=== PATIENT | male | born 1980 ===

== ENCOUNTER 2024-01-09 14:49 | Emergency (ER) | payer MEDICAID, SELFPAY ==
--- NOTE | 2024-01-09 15:13 | ED.GENADULT ---
HPI - General Adult General Chief complaint: Animal Bite Stated complaint: quest bat bite Time Seen by Provider: 01/09/24 17:39 Source: patient, RN notes reviewed and old records reviewed Mode of arrival: ambulatory Limitations: no limitations History of Present Illness ED Provider: Cade HPI narrative: 43-year-old male presents for evaluation potential rabies exposure. Patient reports he woke up early this morning with a bat circling his bed He attempted to capture the bat but was unsuccessful. He believes the bat is still in his house. He has 2 red huang on his right forearm that he thinks may be a bite jackelin but he is not sure He has no complaints or concerns at this time Related Data Allergies Allergy/AdvReac Type Severity Reaction Status Date / Time Seasonal Allergies Allergy Runny Nose Verified 01/09/24 15:16 Review of Systems Constitutional: Constitutional: Denies body ache(s), Denies chills and Denies fever(s) ENT: Denies sore throat Cardiovascular: Cardiovascular: Denies chest pain and Denies dyspnea Respiratory: Respiratory: Denies cough and Denies dyspnea Gastrointestinal: Gastrointestinal: Denies abdominal pain Musculoskeletal: Musculoskeletal: Denies back pain Integumentary/Breasts: Skin/Breast: Reports erythema Physical Exam ED Vital Signs: Vital Signs - 24 hr 01/09/24 15:14 01/09/24 17:58 Temperature 97.9 F Pulse Rate 88 88 Respiratory Rate 16 16 Blood Pressure 138/84 138/84 Pulse Oximetry 98 98 Oxygen Delivery Method Room Air Room Air BMI result Body Mass Index 22.8 Const General: healthy appearing, comfortable, no acute distress, alert and awake Nutritional Appearance: well nourished Orientation/consciousness: patient oriented x3 HENMT Head: Yes normocephalic and Yes atraumatic Eyes Eyelids: Yes eyelids normal Conjunctivae: conjunctivae normal Sclerae: sclerae normal Corneas: corneas normal Pupils: Equal, round and reactive pupils present EOM: EOMs intact bilaterally Neck Neck: Yes full ROM Resp Effort & Inspection: normal respiratory effort, able to speak in complete sentences and not labored Skin Other: Patient has 2 pinpoint areas of erythema to the right forearm. There is no obvious puncture wound General skin exam: elasticity normal Neuro General: patient oriented x3 Cranial nerves: Yes Equal, round and reactive pupils present and Yes Bilaterally intact EOM present Cognition (Neuro): normal cognition Course Course Course Narrative: RAFAELE- 43 year old male presents for evaluation of a bat and potential rabies exposure. Patient reports a bat was flying around his room early this morning and he was unable to catch it. He has a jackelin on his arm that he is unsure if he was bit in or not. Plan to initiate rabies series Medications Administered Discontinued Medications Generic Name Dose Route Start Last Admin Trade Name Lenchoq PRN Reason Stop Dose Admin Rabies Immune Globulin 1,566 unit 01/09/24 15:20 01/09/24 17:38 Rabies Immune Globulin/Pf 900 Unit/3 Ml Vial 20 unit/kg (1566 unit) 01/09/24 15:21 1,566 unit IM Administration ONCE ONE Rabies Vaccine Human Diploid Cell 1 ml 01/09/24 15:20 01/09/24 17:39 Rabies Vaccine, Human Diploid (Imovax) 1 Ml Vial IM 01/09/24 15:21 1 ml .ONCE ONE Administration Procedures Procedure Narrative Procedure Narrative: I cleaned the area to the right forearm. I injected 2 cc of rabies immune globulin intradermally. There were no complications, sterile dressing was applied Medical Decision Making Medical Decision Making MDM Narrative: Patient has a potential bite jackelin. Clinically it does not appear consistent with puncture wounds however the patient did have a bat in his room with high risk for rabies transmission. We will treat with a rabies vaccine series. Discussed risks and benefits with the patient at length Differential Diagnosis Differential Diagnoses: The differential diagnosis associated with the presentation includes Rabies exposure Animal bite Bat and counter Puncture wound Discharge Plan Discharge Clinical Impression: Exposure to rabies Patient Disposition: Home, Self-Care Instructions: Rabies (ED) Additional Instructions: Rabies follow up with the [facility] Infusion Center: Upon discharge from the ED today, you will be contacted by the Infusion Center to schedule your follow up Rabies vaccines. You will need a total of 3 more injections. If for some reason you do not receive a call, please call the Infusion Center directly at [phone]. Follow up with your primary care provider after completion of the vaccine to have a titer drawn to ensure the vaccines effectiveness. You need to present to the infusion center on day 3, 7, and 14 from today If you capture the bat and it test negative for rabies, you may stop the vaccine series Follow-up with your primary doctor, return for new or worsening symptoms Interventions: ED Discharge Assessment Last Done: 01/09/24 17:58
[2024-01-09 15:14] VITALS: BP 138/84; PULSE 88; RESP 16; O2SAT 98; BMI 22.8
[2024-01-09] MEDS: Rabies Immune Globulin/PF 900 UNIT/3 ML VIAL 1566 UNIT IM (17:38)
[2024-01-09] MEDS: Rabies Vaccine, Human Diploid (Imovax) 1 ML VIAL IM (17:39)
[2024-01-09 17:58] VITALS: BP 138/84; PULSE 88; RESP 16; TEMP 36.6; O2SAT 98
== END 2024-01-09 19:02 | disposition home or self-care (01) ==
LOC: HO.ED 18:07
PROVIDERS: Emergency Provider Internal Medicine; PCP Internal Medicine
DX: S51.851A Open bite of right forearm, initial encounter (principal); W55.81XA Bitten by other mammals, initial encounter; Y93.89 Activity, other specified; Y92.009 Unspecified place in unspecified non-institutional (private) residence as the place of occurrence of the external cause; Y99.9 Unspecified external cause status
CPT/HCPCS: 90375; 90471; 90675; 96372; 99282; 99284

== ENCOUNTER 2024-11-15 12:08 | Outpatient (REF) | payer SELFPAY ==
[2024-11-15 14:42] LABS: MANUAL DIFF FLAG NO
--- OUTSIDE RECORDS SUMMARY | 2024-11-15 14:44 | XMS_ITS | Encounter Summary ---
Author Organization [employer] Address [address] [place] [id number] Care Team Providers Care Sheep Sorter Name Role Phone Liseth Spence MD Primary Care Provider Encounter Details Date Type Department Care Team ([facility] Contact Info) Description 10/02/2024 Orders Only [facility] MEDICINE [address] [place], [place] [phone] Liseth Spence MD [address] [place] [address] Primary hypertension (Primary Dx); Essential (primary) hypertension Social History Tobacco Use Types Packs/Day Years Used Date Smoking Tobacco: Every Day Cigarettes Smokeless Tobacco: Never Alcohol Use Standard Drinks/Week Comments Not Currently 0 (1 standard drink = 0.6 oz pur e alcohol) Sex and Gender Information Value Date Recorded Sex Assigned at Male 06/07/2022 10:35 AM EDT Legal Sex Male 10:35 AM EDT Gender Identity Male 06/07/2022 10:35 AM EDT Sexual Orientation Straight 06/07/2022 10 :35 AM EDT documented as of this encounter Plan of Treatment Upcoming Encounters Date Type Department Care Team ([facility] Contact Info) Description 12/03/2024 9:30 AM EDT Office Visit [facility] CHC MED & PEDS [address] [place], [place] [phone] Liseth Spence MD [address] [place], [place] [phone] Scheduled Orders Name Type Priority Associated Diagnoses Orde r Schedule Comprehensive Metabolic Panel Lab Routine Primary hypertension Expected: 10/02/2024 (Approximate), Expires: 10/02/2025 CBC auto differential Lab Routine Primary hypertension Expected: 10/02/2024 (Approximate), Expires: 10/02/2025 Lipid Panel, Standard Lab Routine Primary hypertension Expected: 10/02/2024 (Approximate), Expires: 10/02/2025 TSH W/Reflex to FT4 Lab Routine Primary hypertension Expected: 10/02/2024 (Approximate), Expires: 10/02/2025 documented as of this encounter Visit Diagnoses Diagnosis Primary hypertension- Primary Unspecified essential hypertension Essential (primary) hypertension Unspecified essential hypertension documented in this encounter Care Teams Sheep Sorter Relationship Specialty Start Date End Date Liseth Spence MD [address] [place] [id number] PCP - General Internal Medicine 05/03/19 documented as of this encounter
--- OUTSIDE RECORDS SUMMARY | 2024-11-15 14:44 | XMS_ITS | Encounter Summary ---
Author Organization [employer] Address [address] [place] [address] Care Team Providers Care Bead Machine Operator Name Role Phone Liseth Spence MD Primary Care Provider Encounter Details Date Type Department Care Team (Latest Contact Info) Description 08/09/2019 Abstract [facility] CONVERSIONS Dental, Provider, DDS Social History Tobacco Use Types Packs/Day Years Used Date Smoking Tobacco: Never Assessed Sex and Gender Information Value Date Recorded Sex Assigned at Male 06/07/2022 10:35 AM EDT Legal Sex Male 10:35 AM EDT Gender Identity Male 06/07/2022 10:35 AM EDT Sexual Orientation Straight 06/07/2022 10 :35 AM EDT documented as of this encounter Plan of Treatment Upcoming Encounters Date Type Department Care Team (Late st Contact Info) Description 12/03/2024 9:30 AM EDT Office Visit [facility] CHC MED & PEDS [address] [place] [address] Liseth Spence MD [address] [place] [address] documented as of this encounter Visit Diagnoses Not on filedocumented in this encounter Care Teams Bead Machine Operator Relationship Specialty Start Date End Date Liseth Spence MD [address] [place] [address] PCP - General Internal Medicine 05/03/19 documented as of this encounter
--- OUTSIDE RECORDS SUMMARY | 2024-11-15 14:44 | XMS_ITS | Encounter Summary ---
Author Organization [employer] Address [address] [place] [address] [address] [place] [address] Care Team Providers Care Warehouse Manager Name Role Phone Liseth Spence MD Primary Care Provider Reason for Visit * Reason Onset Date Comments Call Back Request 01/09/2024 Encounter Details Date Type Department Care Team ([facility] st Contact Info) Description 01/09/2024 Telephone [facility] CHC MED & PEDS [address] [place] [address] Liseth Spence MD [address] [place] [address] Call Back Request Social History Tobacco Use Types Packs/Day Years Used Date Smoking Tobacco: Every Day Cigarettes Sex and Gender Information Value Date Recorded Sex Assigned at Male 06/07/2022 10:35 AM EDT Legal Sex Male 10:35 AM EDT Gender Identity Male 06/07/2022 10:35 AM EDT Sexual Orientation Straight 06/07/2022 10 :35 AM EDT documented as of this encounter Miscellaneous Notes * Telephone Encounter - Janie Esparza RN - 01/09/2024 7:40 PM EDT See TC from 01/09/24. [employer] checked and pt presented to [facility] ED for two bite huang to forearm. Ptreceived Rabies tx(Rabies immunoglobulin.) RN will forward to PCP as FYI. * Telephone Encounter - Maegan Phillips - 01/09/2024 11:09 AM EDT Tc from pt states woke up in the middle of the night to a bat in his room. Pt does have concerns and would like to get testing done but is currently asymptomatic. Please contact pt at [phone] documented in this encounter Plan of Treatment Upcoming Encounters Date Type Department Care Team (Late st Contact Info) Description 12/03/2024 9:30 AM EDT Office Visit [facility] CHC MED & PEDS [address] [place] [address] Liseth Spence MD [address] [place] [address] documented as of this encounter Visit Diagnoses Not on filedocumented in this encounter Care Teams Warehouse Manager Relationship Specialty Start Date End Date Liseth Spence MD [address] [place] [address] PCP - General Internal Medicine 05/03/19 documented as of this encounter
--- OUTSIDE RECORDS SUMMARY | 2024-11-15 14:44 | XMS_ITS | Encounter Summary ---
Author Organization [employer] Address [address] [place] [address] Care Team Providers Care Aircraft Charter Dispatcher Name Role Phone Liseth Spence MD Primary Care Provider Encounter Details Date Type Department Care Team (Latest Contact Info) Description 04/10/2021 Abstract [facility] CONVERSIONS Dental, Provider, DDS Social [...] Upcoming Encounters Date Type Department Care Team ( st Contact Info) Description 12/03/2024 9:30 AM EDT Office Visit [facility] CHC MED & PEDS [address] [place] [address] Liseth Spence MD [address] [place] [address] documented as of this encounter Visit Diagnoses Not on filedocumented in this encounter Care Teams Aircraft Charter Dispatcher Relationship Specialty Start Date End Date Liseth Spence MD [address] [place] [address] PCP - General Internal Medicine 05/03/19 documented as of this encounter
--- OUTSIDE RECORDS SUMMARY | 2024-11-15 14:44 | XMS_ITS | Encounter Summary ---
Author Organization [employer] Address [address] [place] [address] Care Team Providers Care Worm Picker Name Role Phone Liseth Spence MD Primary Care Provider [phone] Encounter Details Date Type Department Care Team ([facility] Contact Info) Description 07/12/2023 Telephone [facility] MEDICINE [address] [place], [place] [phone] Liseth Spence MD [address] [place] [address] Social History Tobacco Use Types Packs/Day Years [...] Upcoming Encounters Date Type Department Care Team ([facility] Contact Info) Description 12/03/2024 9:30 AM EDT Office Visit [facility] CHC MED & PEDS [address] [place], [place] [phone] Liseth Spence MD [address] [place] [address] documented as of this encounter Visit Diagnoses Not on filedocumented in this encounter Care Teams Worm Picker Relationship Specialty Start Date End Date Liseth Spence MD [address] [place] [address] PCP - General Internal Medicine 05/03/19 documented as of this encounter
--- OUTSIDE RECORDS SUMMARY | 2024-11-15 14:44 | XMS_ITS | Clinical Summary ---
Author Organization [employer] Address [address] [place] [address] [address] [place] [address] Care Team Providers Care Wind Turbine Design Engineer Name Role Phone Liseth Spence MD Primary Care Provider [phone] Allergies No known active allergies Medications mupirocin (Bactroban) 2 % ointment Apply topically 3 times daily. 22 g 3 Active propranolol (Inderal) 10 MG tabletIndications :Social phobia, unspecified TAKE 1 TABLET BY ORAL ROUTE 30 MINUTES PRIOR TO THE ANXIETY PROVOKING SITUATION 90 tablet 1 3 Active ketoconazole (Nizoral) 2 % shampooIndication s:Seborrheic dermatitis Apply topically 2 (two) times a week. 120 mL 2 3 Active clonazePAM (KlonoPIN) 0.5 MG tabletIndications :Anxiety Take 1 tablet (0.5 mg) by mouth Once daily. 30 tablet 3 Active Aspirin 81 MG capsule Take 81 mg by mouth. 4 Active busPIRone (Buspar) 15 MG tabletIndications :Anxiety disorder, unspecified TAKE 1 TABLET BY MOUTH TWICE A DAY 60 tablet 5 5 Active amLODIPine (Norvasc) 10 MG tabletIndications :Essential (primary) hypertension Take 1 tablet (10 mg) by mouth Once per day. 90 tablet 1 5 Active Active Problems Problem Noted Date Diagnosed Date Anxiety 07/13/2023 07/13/2023 Chronic back pain 07/13/2023 07/13/2023 Assessment & Plan (09/15/2023 2:20 PM EST): Chronic low back pain, no sciatica, no lower extremity weakness, tingling, refers used to see pain management but lost follow up about 2-3 years ago, will place consult, Tick bite of right upper arm 12/21/2022 Assessment & Plan (12/21/2022 4:07 PM EDT): Patient with a recent tick bite, species unknow. Will start on doxycycline and bactroban and send for lyme disease testing. Encounters Date Type Department Care Team Description 10/02/2024 Orders Only [facility] MEDICINE [address] [place], [place] [phone] Liseth Spence MD Primary hypertension (Primary Dx); Essential (primary) hypertension 10/01/2024 Refill [facility] MED & PEDS [address] [place] [address] Liseth Spence MD Essential (primary) hypertension 09/04/2024 Refill [facility] MED & PEDS [address] [place] [address] Liseth Spence MD Anxiety disorder, unspecified from Last 3 Months Social History Tobacco Use Types Packs/Day Years Used Date Smoking Tobacco: Every Day Cigarettes Smokeless Tobacco: Never Tobacco Cessation:Ready to Q uit: Not Asked; Counseling Given: Not Answered Alcohol Use Standard Drinks/Week Comments Not Currently 0 (1 standard drink = 0.6 oz pur e alcohol) Sex and Gender Information Value Date Recorded Sex Assigned at Male 06/07/2022 10:35 AM EDT Legal Sex Male 10:35 AM EDT Gender Identity Male 06/07/2022 10:35 AM EDT Sexual Orientation Straight 06/07/2022 10 :35 AM EDT Last Filed Vital Signs Vital Sign Reading Time Taken Comments Blood Pressure 142/80 04/04/2024 2:09 PM EDT Pulse 90 07/13/2023 9:20 AM EST Temperature 36.2 ??C (97.1 ??F) 07/13/2023 9:20 AM ES T Respiratory Rate 18 07/13/2023 9:20 AM EST Oxygen Saturation 99% 07/13/2023 9:20 AM EST Inhaled Oxygen Concentration - - Weight 75.8 kg (167 lb) 07/13/2023 9:20 AM EST Height 188 cm (6' 2 ) 07/13/2023 9:20 AM EST Body Mass Index 21.44 07/13/2023 9:20 AM EST Plan of Treatment Upcoming Encounters Date Type Department Care Team (Late st Contact Info) Description 12/03/2024 9:30 AM EDT Office Visit [facility] MED & PEDS [address] [place] [address] Liseth Spence MD [address] [place] [address] Health Maintenance Due Date Last Done Comments Depression Screening 1982 HIV Screening 1982 Lipid Panel 1982 SDOH Screening 1982 Alcohol/Substance Use Screening 1994 Family Planning (PISQ) 1997 Hepatitis C Screening 01/26/2000 DTaP/Tdap/Td Vaccines (1 - Tdap) 2001 Hepatitis B Vaccines (1 of 3 - 19+ 3-dose series) 2001 Pneumococcal Vaccine: Pediatrics (0 to 5 Years) and At-Risk Patients (6 to 49) Years) (1 of 2 - PCV) 2001 Dental Oral Exam 09/28/2021 03/27/2021, 08/09/2019 Dental Prophylaxis 10/09/2021 04/10/2021, 08/16/2019 Dental X-Ray: Full Mouth 08/10/2022 08/09/2019 COVID-19 Vaccine ( - 2023- season) 2024 Influenza Vaccine (#1) 2024 Tobacco Screening 04/04/2025 04/04/2024 Dental X-Ray: Bitewings 04/05/2025 04/04/20 24, 03/27/2021, 03/25/2021, Additional history exists Zoster Vaccines (1 of 2) 01/26/2032 RSV Patients and Patients Aged 60 years or older (1 - 1-dose 75+ series) 2057 HIB Vaccines Aged Out No longer eligi ble based on patient's age to complete this topic HPV Vaccines Aged Out No longer eligi ble based on patient's age to complete this topic Hepatitis A Vaccines Aged Out No long er eligible based on patient's age to complete this topic IPV Vaccines Aged Out No longer eligi ble based on patient's age to complete this topic Meningococcal Vaccine Aged Out No valentina ryan eligible based on patient's age to complete this topic RSV under 20 months Aged Out No longe r eligible based on patient's age to complete this topic Rotavirus Vaccines Aged Out No longer eligible based on patient's age to complete this topic Procedures Procedure Name Priority Date/Time Associated Diagnosis Comments BITEWING - SINGLE RADIOGRAPHIC IMAGE Routine 04/04/2024 2:00 PM EDT PROPHYLAXIS - ADULT Routine 04/10/2021 1 2:00 AM EDT PERIODIC ORAL EVALUATION - ESTABLISHED PATIENT Routine 03/27/2021 12:00 AM EDT INTRAORAL - COMPLETE SERIES OF RADIOGRAPHIC IMAGES Routine 08/09/2019 12:00 AM EST from Last 3 Months or Most Recently Relevant to Health Maintenance Insurance [place] [id number] [facility] STAND ADULT Care Teams Wind Turbine Design Engineer Relationship Specialty Start Date End Date Liseth Spence MD [address] [place] [address] PCP - General Internal Medicine 05/03/19
--- OUTSIDE RECORDS SUMMARY | 2024-11-15 14:44 | XMS_ITS | Encounter Summary ---
Author Organization [employer] Address [address] [place] [address] Care Team Providers Care Packer Fuser Name Role Phone Liseth Spence MD Primary Care Provider [phone] Reason for Visit * Reason Comments Med Refill Encounter Details Date Type Department Care Team (Late Contact Info) Description 10/01/2024 Refill [facility] MED & PEDS [address] [place] [address] Liseth Spence MD [address] [place] [address] Essential (primary) hypertension Social History Tobacco Use [...] Encounters Date Type Department Care Team (Late Contact Info) Description 12/03/2024 9:30 AM EDT Office Visit [facility] MED & PEDS [address] [place] [address] Liseth Spence MD [address] [place] [address] documented as of this encounter Visit Diagnoses Diagnosis Essential (primary) hypertension Unspecified essential hypertension documented in this encounter Care Teams Packer Fuser Relationship Specialty Start Date End Date Liseth Spence MD [address] [place] [address] PCP - General Internal Medicine 05/03/19 documented as of this encounter
[2024-11-15 14:52] LABS: Basophils Absolute Auto 0.1 X10*3/uL (0.0-0.2); Basophils Percent Auto 1.3 % (0-2); Eosinophils Absolute Auto 0.5 X10*3/uL (0.0-0.4); Eosinophils Percent Auto 6.9 % (0-4); Hematocrit 41.7 % (42.0-52.0); Hemoglobin 13.9 g/dl (14.0-18.0); Imm Gran Abs Auto 0.02 X10*3/uL (0.00-0.03); Imm Gran Pct Auto 0.3 % (0.0-0.4); Lymphocytes Absolute Auto 2.7 X10*3/uL (1.2-4.9); Lymphocytes Percent Auto 38.4 % (20-40); Mean Corpuscular HGB Conc 33.3 g/dl (31.0-36.0); Mean Corpuscular Hemoglobin 28.5 pg (27.0-33.0); Mean Corpuscular Volume 85.5 fL (80.0-98.0); Mean Platelet Volume 11.1 fL (9.4-12.4); Monocytes Absolute Auto 0.7 X10*3/uL (0.1-1.2); Monocytes Percent Auto 9.3 % (2-11); Neutrophils Absolute Auto 3.1 x10*3/uL (2.0-8.3); Neutrophils Percent Auto 43.8 % (45-73); Platelet Count 234 X10*3/uL (160-400); Red Blood Count 4.88 X10*6/uL (4.60-5.80); Red Cell Distribution Width 12.4 % (11.0-16.0); White Blood Count 7.1 X10*3/uL (4.8-10.8)
[2024-11-15 15:12] LABS: Alanine Aminotransferase 36 U/L (0-40); Albumin Level 4.2 g/dL (3.5-5.0); Anion Gap 12 (12-20); Aspartate Amino Transferase 33 U/L (5-37); Bilirubin Total 0.6 mg/dL (0.0-1.0); Blood Urea Nitrogen 16 mg/dL (9-16); Calcium 9.1 mg/dL (8.4-10.2); Carbon Dioxide 25 mmol/L (22-29); Chloride 107 mmol/L (96-108); Cholesterol 237 mg/dL (<200); Estimated Glomerular Filt Rate > 60; Glucose Random 78 mg/dL (60-115); HDL Cholesterol 47 mg/dL (>40); LDL Cholesterol Calculated 164 mg/dL (<100); Potassium 3.8 mmol/L (3.3-5.1); Sodium 140 mmol/L (135-145); Triglycerides 130 mg/dL (<150)
[2024-11-15 15:21] LABS: Alkaline Phosphatase 85 U/L (39-117)
[2024-11-15 15:28] LABS: TSH reflex Free T4 0.87 uIU/mL (0.32-4.0)
== END 2024-11-15 12:09 | disposition home or self-care (01) ==
LOC: HO.CHCLDS 12:08
PROVIDERS: Visit Provider Internal Medicine
DX: I10 Essential (primary) hypertension (principal)
CPT/HCPCS: 36415; 80053; 80061; 84443; 85025

== ENCOUNTER 2025-05-04 08:04 | Emergency (ER) | payer SELFPAY ==
[2025-05-04 08:14] VITALS: BP 146/70; PULSE 85; RESP 16; TEMP 36.7; O2SAT 99; BMI 23.1
--- OUTSIDE RECORDS SUMMARY | 2025-05-04 08:38 | XMS_ITS | Clinical Summary ---
Author Organization [employer] Address [address] [facility] 7t [place] [address] Care Team Providers Care Gizzard Peeler Name Role Phone Liseth Spence MD Primary Care Provider Allergies No known active allergies Medications mupirocin [...] Take 81 mg by mouth. 4 Active nicotine (Nicoderm CQ) 21 MG/24HR patchIndications: Hypercholesterole silvia Place 1 patch on the skin 1 (one) time each day at the same time. 30 patch 5 Active busPIRone (Buspar) 15 MG tabletIndications :Anxiety disorder, unspecified Take 1 tablet (15 mg) by mouth 2 times daily. 60 tablet 5 5 Active amLODIPine (Norvasc) 10 MG tabletIndications :Essential (primary) hypertension TAKE 1 TABLET (10 MG) BY MOUTH ONCE PER DAY. 90 tablet 1 5 Active amoxicillin (Amoxil) 500 MG capsule Take 1 capsule (500 mg) by mouth every 8 (eight) hours for 7 days. 21 capsule 5 04/16/20 25 chlorhexidine (Peridex) 0.12 % solution Use 15 mL in the mouth or throat if needed in the morning, at noon, and at bedtime (PROPHYLAXIS) for up to 5 days. 110 mL 5 04/09/20 25 acetaminophen (Tylenol) 500 MG tablet Take 1 tablet (500 mg) by mouth every 8 (eight) hours if needed for mild pain or moderate pain for up to 5 days. 15 tablet 5 04/16/20 25 amoxicillin-clavu lanate (Augmentin) 875-125 MG tablet Take 1 tablet by mouth 2 times daily for 7 days. 14 tablet 5 04/23/20 25 ibuprofen 600 MG tablet Take 1 tablet (600 mg) by mouth 3 times daily for 7 days. 21 tablet 5 04/23/20 25 acetaminophen (Tylenol) 500 MG tablet Take 1 tablet (500 mg) by mouth every 8 (eight) hours if needed for mild pain for up to 7 days. 21 tablet 5 04/23/20 25 Active Problems Problem Noted Date Diagnosed Date Primary hypertension 12/03/2024 Hypercholesterolemia 12/03/2024 Anxiety 07/13/2023 07/13/2023 Chronic back pain 07/13/2023 [...] Encounters Date Type Department Care Team Description 05/03/2025 Telephone [facility] MED & PEDS [address] [place] [address] Liseth Spence MD Nurse Triage 04/16/2025 10:00 AM EDT Office Visit [facility] ADULT DENTAL [address] [place] [address] Billy Kirby DDS 04/04/2025 11:30 AM EDT Office Visit [facility] ADULT DENTAL [address] [place] [address] Lee Estrada DMD 03/31/2025 Refill [facility] MEDICINE [address] [place] [address] Liseth Spence MD Essential (primary) hypertension 02/21/2025 Telephone [facility] CHC MED & PEDS [address] [place], [place] [phone] Liseth Spence MD ER Follow-up from Last 3 Months Social History Tobacco Use Types Packs/Day Years Used Date Smoking Tobacco: Every Day Cigarettes 0.5 27.7 Started: 08/08/1997 Passive Smoke Exposure: Current Smokeless Tobacco: Never Tobacco Cessation:Ready to Q uit: Not Asked; Counseling Given: Not Answered Alcohol Use Standard Drinks/Week Comments Not Currently 0 (1 standard drink = 0.6 oz pur e alcohol) Depression Answer Date Recorded Patient Health Questionnaire-9 Score 3 12/03/2024 Patient Health Questionnaire-9 Score 3 12/03/2024 Last PHQ-9: Questionnaire Data Not on file 0 12/03/2024 Housing Stability Answer Date Recorded What is your housing situation today? I have kaykay mccurdy 11/21/[address] you li ve. Do you have problems with any of the following? None of the above 11/21/2024 Food Insecurity Answer Date Recorded Within the past 12 months, y ou worried that your food would run out before you got money to buy more: Never True 11/21/2024 Within the past 12 months,th e food you bought just didn't last and you didn't have enough money to get more: Never True Transportation Answer Date Recorded In the past 12 months, has l ack of transportation kept you from medical appts, meetings, work or from getting things needed for daily living? No 11/21/2024 Utilities Answer Date Recorded In the past 12 months, has t he electric, gas, oil or water company threatened to shut off services in your home? No 11/21/2024 Depression Answer Date Recorded Patient Health Questionnaire-2 Score 2 12/03/2024 Internet Access Answer Date Recorded Internet Access Q1 Yes 11/21/2024 Internet Access Q2 Not on file 11/21/2024 Sex and Gender Information Value Date Recorded Sex Assigned at Male 06/07/2022 10:35 AM EDT Legal Sex Male 10:35 AM EDT Gender Identity Male 06/07/2022 10:35 AM EDT Sexual Orientation Straight 06/07/2022 10 :35 AM EDT Last Filed Vital Signs Vital Sign Reading Time Taken Comments Blood Pressure 120/90 04/16/2025 10:16 AM EDT Pulse 88 12/03/2024 9:37 AM EDT Temperature 36.9 C (98.4 F) 12/03/2024 9:37 AM EDT Respiratory Rate 20 12/03/2024 9:37 AM EDT Oxygen Saturation 98% 12/03/2024 9:37 AM EDT Inhaled Oxygen Concentration - - Weight 77.6 kg (171 lb) 12/03/2024 9:37 AM EDT Height 185.4 cm (6' 1 ) 12/03/2024 9:37 AM EDT Body Mass Index 22.56 12/03/2024 9:37 AM EDT Plan of Treatment Upcoming Encounters Date Type Department Care Team (Late st Contact Info) Description 05/28/2025 10:30 AM EDT Office Visit [facility] ADULT DENTAL [address] [place] [address] Billy Kirby DDS [address] [place] [address] 10/17/2025 10:15 AM EDT Office Visit [facility] ADULT DENTAL [address] [place] [address] Radha Mccloud Health Maintenance Due Date Last Done Comments HIV Screening 1982 Family Planning (PISQ) 1997 HPV Vaccines (1 - Male 3-dose series) 1997 Hepatitis C Screening 01/26/2000 Hepatitis B Vaccines (1 of 3 - 19+ 3-dose series) 2001 Pneumococcal Vaccine: Pediatrics (0 to 5 Years) and At-Risk Patients (6 to 49) Years (1 of 2 - PCV) 2001 Dental Oral Exam 09/28/2021 03/27/2021, 08/09/2019 Dental Prophylaxis 10/09/2021 04/10/2021, 08/16/2019 Dental X-Ray: Bitewings 04/05/2025 04/04/20 24, 03/27/2021, 03/25/2021, Additional history exists COVID-19 Vaccine ( - season) 2025 Influenza Vaccine (#1) 2025 SDOH Screening 11/21/2025 11/21/2024 Alcohol/Substance Use Screening 12/03/2025 12/03/2024 Depression Screening 12/03/2025 12/03/2024, 12/04/19 Disability Screening 12/03/2025 12/03/2024 Tobacco Screening 04/04/2026 04/04/2025 Dental X-Ray: Full Mouth 04/05/2028 04/04/2025, 09/2019 Lipid Panel 11/15/2029 11/15/2024 Zoster Vaccines (1 of 2) 01/26/2032 DTaP/Tdap/Td Vaccines (2 - Td or Tdap) 02/16/2035 02/16/2025 RSV Patients and Patients Aged 60 years [...] patient's age to complete this topic Meningococcal B Vaccine Aged Out No l onger eligible based on patient's age to complete [...] Procedure Name Priority Date/Time Associated Diagnosis Comments 1 EXTRACTION, ERUPTED TOOTH OR EXPOSED ROOT (ELEVATION/FORCEPS REMOVAL) Routine 04/16/2025 10:00 AM EDT PANORAMIC RADIOGRAPHIC IMAGE Routine 04/04/2025 11:30 AM EDT PALLIATIVE (EMERGENCY) TREATMENT OF DENTAL PAIN - MINOR PROCEDURE Routine 04/04/2025 11:30 AM EDT LIPID PANEL, STANDARD Routine 11/15/2024 12:09 PM EDT Primary hypertension BITEWING - SINGLE RADIOGRAPHIC IMAGE Routine 04/04/2024 2:00 PM EDT PROPHYLAXIS - ADULT Routine 04/10/2021 1 2:00 AM EDT PERIODIC ORAL EVALUATION - ESTABLISHED PATIENT Routine 03/27/2021 12:00 AM EDT from Last 3 Months or Most Recently Relevant to Health Maintenance Results * (ABNORMAL) Lipid Panel, Standard (11/15/2024 12:09 PM EDT) Triglycerides 130 <150 mg/dL [facility] Comment:Desirable Triglyceri de: less than 150 mg/dLBorderline High Triglyceride 150-199 mg/dLHigh Triglyceride: 200-499 mg/dLVery High Triglyceride: greater than or equal to 5OO mg/dL Cholesterol 237(H) <200 mg/dL [facility] Comment:Desirable Cholestero l: less than 200 mg/dLBorderline High Cholesterol: 200-239 mg/dLHigh Cholesterol: greater than 239 mg/dL LDL Cholesterol Calculated 164(H) <100 mg/dL [facility] Comment:Desirable LDL: less than 100 mg/dLNear Optimal/Above Optimal LDL: 110- 129 mg/dLBorderline High LDL: 130-159 mg/dLHigh LDL: 160-189 mg/dLVery High LDL: greater than or equal to 190 mg/dL HDL Cholesterol 47 >40 mg/dL [facility] Comment:Desirable HDL: great er than 40 mg/dL Note: This HDL assay may give artificially low results in patients with liver disease. Blood Venous blood specimen / Unknown 11/15/2024 12:09 PM EDT 11/15/2024 2:37 PM EDT us Liseth Spence MD LAB BLOOD ORDERABLES Final Result [facility] [address] [place] [address] [phone] from Last 3 Months or Most Recently Relevant to Health Maintenance Insurance [place] [id number] [facility] Care Teams Gizzard Peeler Relationship Specialty Start Date End Date Liseth Spence MD [address] [place] [phone] PCP - General Internal Medicine 05/03/19
--- OUTSIDE RECORDS SUMMARY | 2025-05-04 08:39 | XMS_ITS | Encounter Summary ---
Author Organization [employer] Address [address] [facility] 7 [place] [address] Care Team Providers Care Finishing Range Operator Name Role Phone Liseth Spence MD Primary Care Provider Reason for Visit * Reason Onset Date Comments Nurse Triage 05/03/2025 Encounter Details Date Type Department Care Team ([facility] Contact Info) Description 05/03/2025 Telephone [facility] MED & PEDS [address] [place], [place] [phone] Liseth Spence MD [address] [place] [address] Nurse Triage Social History Tobacco Use Types Packs/Day Years Used Date Smoking Tobacco: Every Day Cigarettes 0.5 27.7 Started: 08/08/1997 Passive Smoke Exposure: Current Smokeless Tobacco: Never Alcohol Use Standard Drinks/Week [...] encounter Miscellaneous Notes * Telephone Encounter - Kerri Joyce RN - 05/03/2025 12:33 PM EDT Call returned to Ivan Herron to triage below at [phone]. Reports a year ago had rabies vaccines due to exposure to bat. Per pt pt 3 days ago noticed a bite jackelin on right hand. Pt states it is having mild redness. Per pt scabs are indented.. no pururlent discharge. Pt does not recall a recent encounter. Pt states not sure if could be an insect or spider bite. Pt advised we do not offer Rabies vaccines here but should seek same ER where had previous series to determine if vaccination is warranted. Reviewed home care measure for skin care such as cleaning with warm water, applying topical triple antibiotics and keep area dry and clear. To return call if area does not appear to heal after 10 days. Pt agrees. Protocol Used: Rash or Redness - Localized (Adult) Protocol-Based Disposition: See in Office or Video Visit Today Override (Final) Disposition: Go to ED/UCC Now (or to Office Now per Policy) Override Reason: Other Override Notes: Wants rabies vaccines and we do not carry Video visit offer not recorded Positive Triage Question: * Patient wants to be seen * All higher-acuity triage questions were negative Care Advice Discussed: * Reassurance and Education - Mild Localized Rash * Wash the Area * Cold Pack for Mild Itching or Mild Pain * Reasons To Call Back - Rash spreads or becomes worse - You become worse * Telephone Encounter - Teja Raimundo - 05/03/2025 12:01 PM EDT Symptom: Skin Injury / Cuts Outcome: Schedule an appointment to be seen within 24 hours Reason: Caller denied all higher acuity questions The caller accepted this outcome. Pt reported that 1 year ago he had an encounter with a bat went to get the rabies vaccine. A coupledays ago, pt woke up with a wound, denied triage just a little redness around the wound. Pt does not know if he was bitten or not. Pt is now requesting a booster for the rabies vaccine. Any question contact pt at [phone] documented in this encounter Plan of Treatment Upcoming Encounters Date Type Department Care Team (Late st Contact Info) Description 05/28/2025 10:30 AM EDT Office Visit [facility] ADULT DENTAL [address] [place] [address] Billy Kirby DDS [address] [place] [address] 10/17/2025 10:15 AM EDT Office Visit [facility] ADULT DENT[facility] [address] [place] [address] Radha Mccloud documented as of this encounter Visit Diagnoses Not on filedocumented in this encounter Additional Health Concerns Assessment Noted Time PHQ-9 Depression Total Score: 3 12/04/19 25 9:45 AM EDT documented as of this encounter Care Teams Finishing Range Operator Relationship Specialty Start Date End Date Liseth Spence MD [address] [place] [address] PCP - General Internal Medicine 05/03/19 documented as of this encounter
--- OUTSIDE RECORDS SUMMARY | 2025-05-04 08:39 | XMS_ITS | Encounter Summary ---
Author Organization [employer] Address [address] [place] [address] 7 [place] [address] Care Team Providers Care Cash Applications Analyst Name Role Phone Liseth Spence MD Primary Care Provider Encounter Details Date Type Department Care Team (Latest Contact Info) Description 04/10/2021 Abstract [facility] CONVERSIONS Dental, Provider, DDS Social History Tobacco [...] Care Team ( st Contact Info) Description 05/28/2025 10:30 AM EDT Office Visit [facility] ADULT DENTAL [address] [place] [address] Billy Kirby DDS [address] [place] [address] 10/17/2025 10:15 AM EDT Office Visit [facility] ADULT DENTAL [address] [place] [address] Radha Mccloud documented as of this encounter Visit Diagnoses Not on filedocumented in this encounter Care Teams Cash Applications Analyst Relationship Specialty Start Date End Date Liseth Spence MD [address] [place] [address] PCP - General Internal Medicine 05/03/19 documented as of this encounter
--- OUTSIDE RECORDS SUMMARY | 2025-05-04 08:39 | XMS_ITS | Encounter Summary ---
Author Organization [employer] Address [address] [place] [address] 7 [place] [address] Care Team Providers Care Put In Beat Adjuster Name Role Phone Liseth Spence MD Primary Care Provider Encounter Details Date Type Department Care Team (Late st Contact Info) Description 10/02/2024 Orders Only [facility] MEDICINE [address] [place], [place] [phone] Liseth Spence MD [address] [place] [phone] Primary hypertension (Primary Dx); Essential (primary) hypertension [...] Description 05/28/2025 10:30 AM EDT Office Visit [facility] ADULT DENTAL [address] [place] [address] Billy Kirby DDS [address] [place], [place] [phone] 10/17/2025 10:15 AM EDT Office Visit [facility] ADULT DENTAL [address] [facility] [place] [address] Radha Mccloud documented as of this encounter Procedures Procedure Name Priority Date/Time Associated Diagnosis Comments TSH W/REFLEX TO FT4 Routine 11/15/2024 1 2:09 PM EDT Primary hypertension CBC WITH AUTO DIFFERENTIAL Routine 11/15/2024 12:09 PM EDT Primary hypertension LIPID PANEL, STANDARD Routine 11/15/2024 12:09 PM EDT Primary hypertension COMPREHENSIVE METABOLIC PANEL Routine 11/15/2024 12:09 PM EDT Primary hypertension documented in this encounter Results * TSH W/Reflex to FT4 (11/15/2024 12:09 PM EDT) TSH reflex Free T4 0.87 0.32 - 4.0 uIU/mL [facility] Blood Venous blood specimen / Unknown 11/15/2024 12:09 PM EDT 11/15/2024 2:37 PM EDT us Liseth Spence MD LAB BLOOD ORDERABLES Final Result [facility] [address] [place] [address] [phone] * (ABNORMAL) Lipid Panel, Standard (11/15/2024 12:09 PM EDT) Triglycerides 130 <150 mg/dL [facility] Comment:Desirable Triglyceri de: less than 150 mg/dLBorderline High Triglyceride 150-199 mg/dLHigh Triglyceride: 200-499 mg/dLVery High Triglyceride: greater than or equal to 5OO mg/dL Cholesterol 237(H) <200 mg/dL [facility] Comment:Desirable Cholestero l: less than 200 mg/dLBorderline High Cholesterol: 200-239 mg/dLHigh Cholesterol: greater than 239 mg/dL LDL Cholesterol Calculated 164(H) <100 mg/dL [facility] Comment:Desirable LDL: less than 100 mg/dLNear Optimal/Above Optimal LDL: 110- 129 mg/dLBorderline High LDL: 130-159 mg/dLHigh LDL: 160-189 mg/dLVery High LDL: greater than or equal to 190 mg/dL HDL Cholesterol 47 >40 mg/dL [facility] Comment:Desirable HDL: great er than 40 mg/dL Note: This HDL assay may give artificially low results in patients with liver disease. Blood Venous blood specimen / Unknown 11/15/2024 12:09 PM EDT 11/15/2024 2:37 PM EDT us Liseth Spence MD LAB BLOOD ORDERABLES Final Result [facility] [address] [place] [address] [phone] * (ABNORMAL) CBC auto differential (11/15/2024 12:09 PM EDT) White Blood Count 7.1 4.8 - 10.8 X10*3/uL [facility] Red Blood Count 4.88 4.60 - 5.80 X10*6/uL [facility] Hemoglobin 13.9(L) 14.0 - 18.0 g/dl [facility] Hematocrit 41.7(L) 42.0 - 52.0 % [facility] Mean Corpuscular Volume 85.5 80.0 - 98.0 fL [facility] Mean Corpuscular Hemoglobin 28.5 27.0 - 33.0 pg [facility] Mean Corpuscular HGB Conc 33.3 31.0 - 36.0 g/dl [facility] Red Cell Distribution Width 12.4 11.0 - 16.0 % [facility] Platelet Count 234 160 - 400 X10*3/uL [facility] Mean Platelet Volume 11.1 9.4 - 12.4 fL [facility] Neutrophils Percent Auto 43.8(L) 45 - 73 % [facility] Imm Gran Pct Auto 0.3 0.0 - 0.4 % [facility] Lymphocytes Percent Auto 38.4 20 - 40 % [facility] Monocytes Percent Auto 9.3 2 - 11 % [facility] Eosinophils Percent Auto 6.9(H) 0 - 4 % [facility] Basophils Percent Auto 1.3 0 - 2 % [facility] NRBC Pct Auto 0.0 0.0 - 0.2 /100WBC [facility] Neutrophils Absolute Auto 3.1 2.0 - 8.3 x10*3/uL [facility] Imm Gran Abs Auto 0.02 0.00 - 0.03 X10*3/uL [facility] Lymphocytes Absolute Auto 2.7 1.2 - 4.9 X10*3/uL [facility] Monocytes Absolute Auto 0.7 0.1 - 1.2 X10*3/uL [facility] Eosinophils Absolute Auto 0.5(H) 0.0 - 0.4 X10*3/uL [facility] Basophils Absolute Auto 0.1 0.0 - 0.2 X10*3/uL [facility] NRBC Abs Auto 0.000 0.0 - 0.012 X10*3/uL [facility] Blood Venous blood specimen / Unknown 11/15/2024 12:09 PM EDT 11/15/2024 2:37 PM EDT Liseth Spence MD LAB BLOOD ORDERABLES Final Result [facility] [address] [place] [phone] * Comprehensive Metabolic Panel (11/15/2024 12:09 PM EDT) Sodium 140 135 - 145 mmol/L [facility] Potassium 3.8 3.3 - 5.1 mmol/L [facility] Chloride 107 96 - 108 mmol/L [facility] Carbon Dioxide 25 22 - 29 mmol/L [facility] Anion Gap 12 12 - 20 [facility] Urea Nitrogen (BUN) 16 9 - 16 mg/dL [facility] Creatinine, Serum 0.80 0.5 - 1.4 mg/dL [facility] Estimated Glomerular Filt Rate >60 [facility] Comment:Chronic Kidney Disea se: Estimated GFR < 60 mL/min/[id number] Kidney Disease: Estimated GFR < 15 mL/min/1.73m2 Glucose 78 60 - 115 mg/dL [facility] Calcium 9.1 8.4 - 10.2 mg/dL [facility] Bilirubin, Total 0.6 0.0 - 1.0 mg/dL [facility] Aspartate Amino Transferase 33 5 - 37 U/L [facility] Alanine Aminotransferase 36 0 - 40 U/L [facility] Total Protein 7.0 6.5 - 8.0 g/dL [facility] Albumin Level 4.2 3.5 - 5.0 g/dL [facility] Alkaline Phosphatase 85 39 - 117 U/L [facility] Blood Venous blood specimen / Unknown 11/15/2024 12:09 PM EDT 11/15/2024 2:37 PM EDT Liseth Spence MD LAB BLOOD ORDERABLES Final Result [facility] [address] [place] [address] [phone] documented in this encounter Visit Diagnoses Diagnosis Primary hypertension- Primary Unspecified essential hypertension Essential (primary) hypertension Unspecified essential hypertension documented in this encounter Care Teams Put In Beat Adjuster Relationship Specialty Start Date End Date Liseth Spence MD [address] [place] [phone] PCP - General Internal Medicine 05/03/19 documented as of this encounter
--- OUTSIDE RECORDS SUMMARY | 2025-05-04 08:39 | XMS_ITS | Encounter Summary ---
Author Organization [email or web address] Address [address] [place] [address] [address] [place] [address] Care Team Providers Care Business Leader Name Role Phone Liseth Spence MD Primary Care Provider [phone] Reason for Visit * Reason Comments Med Refill Encounter Details Date Type Department Care Team (Late st Contact Info) Description 10/01/2024 Refill [facility] CHC MED & PEDS [address] [place], [place] [phone] Liseth Spence MD [address] [place], [place] [phone] Essential (primary) hypertension Social History Tobacco Use [...] Description 05/28/2025 10:30 AM EDT Office Visit [facility] ADULT DENTAL [address] [place], [place] [phone] Billy Kirby DDS [address] [place], [place] [phone] 10/17/2025 10:15 AM EDT Office Visit [facility] ADULT DENTAL [address] [place] [address] Radha Mccloud documented as of this encounter Visit Diagnoses Diagnosis Essential (primary) hypertension Unspecified essential hypertension documented in this encounter Care Teams Business Leader Relationship Specialty Start Date End Date Liseth Spence MD [address] [place] [phone] PCP - General Internal Medicine 05/03/19 documented as of this encounter
--- OUTSIDE RECORDS SUMMARY | 2025-05-04 08:39 | XMS_ITS | Encounter Summary ---
Author Organization [employer] Address [address] [facility] 7 [place] [address] Care Team Providers Care Entry Level Project Coordinator Name Role Phone Liseth Spence MD Primary Care Provider [phone] Reason for Visit * Reason Comments Med Refill Encounter Details Date Type Department Care Team ([facility] st Contact Info) Description 01/08/2025 Refill [facility] CHC MED & PEDS [address] [place], [place] [phone] Liseth Spence MD [address] [place] [address] Anxiety disorder, unspecified Social History Tobacco Use Types Packs/Day Years [...] Description 05/28/2025 10:30 AM EDT Office Visit [facility] ADULT DENTAL [address] [place] [address] Billy Kirby, GAELS [address] [place] [address] 10/17/2025 10:15 AM EDT Office Visit [facility] ADULT DENTAL [address] [place] [address] Radha Mccloud documented as of this encounter Visit Diagnoses Diagnosis Anxiety disorder, unspecified documented in this encounter Additional Health Concerns Assessment Noted Time PHQ-9 Depression Total Score: 3 12/04/19 25 9:45 AM EDT documented as of this encounter Care Teams Entry Level Project Coordinator Relationship Specialty Start Date End Date Liseth Spence MD [address] [place] [address] PCP - General Internal Medicine 05/03/19 documented as of this encounter
--- OUTSIDE RECORDS SUMMARY | 2025-05-04 08:39 | XMS_ITS | Clinical Summary ---
Author Organization [facility] Address [address] [place] [address] Phone Care Team Providers Care Rubber Mill Operator Name Role Phone Liseth Spence MD Primary Care Provider [phone] Allergies No known active allergies Medications No known medications Active Problems No known active problems Encounters Date Type Department Care Team Description 02/19/2025 8:32 AM EDT - 02/19/2025 8:58 AM EDT Emergency [facility] [address] [place] [address] Puncture wound of middle finger, initial encounter (Primary Dx); Axillary lymphadenopathy; Cellulitis of finger of right hand Discharge Disposition: Home or Self Care from Last 3 Months Medical History Medical History Date Comments Hypertension Social History Tobacco Use Types Packs/Day Years Used Date Smoking Tobacco: Every Day Cigarettes Smokeless Tobacco: Never Tobacco Cessation:Ready to Q uit: Not Asked; Counseling Given: Not Answered Alcohol Use Standard Drinks/Week Comments Never 0 (1 standard drink = 0.6 oz pur e alcohol) Sex and Gender Information Value Date Recorded Sex Assigned at Not on file Legal Sex Male 6:23 AM EDT Gender Identity Not on file Sexual Orientation Not on file Obstetrics History Last Filed Vital Signs Vital Sign Reading Time Taken Comments Blood Pressure 140/72 02/19/2025 6:28 AM EDT Pulse 90 02/19/2025 6:28 AM EDT Temperature 36.9 C (98.4 F) 02/19/2025 6:28 AM EDT Respiratory Rate 16 02/19/2025 6:28 AM EDT Oxygen Saturation 98% 02/19/2025 6:28 AM EDT Inhaled Oxygen Concentration - - Weight 77.1 kg (170 lb) 02/19/2025 6:28 AM EDT Height 185.4 cm (6' 1 ) 02/19/2025 6:28 AM EDT Body Mass Index 22.43 02/19/2025 6:28 AM EDT Plan of Treatment Health Maintenance Due Date Last Done Comments DTaP,Tdap,and Td Vaccines (1 - Tdap) 2001 Hepatitis B Vaccines (1 of 3 - 19+ 3-dose series) 2001 Pneumococcal Vaccine: Pediat rics (0 to 5 Years) and At-Risk Patients (6 to 49 Years) (1 of 2 - PCV) 2001 Depression Screening 08/08/2024 HIV Screening 02/19/2025 Hepatitis C Screening 02/19/2025 Social Influencers of Health Screening 02/19/2025 Hypertension/CHF/CAD Annual BMP Blood Test 02/20/2025 COVID-19 Vaccine (1 - 2023-2 5 season) 2025 Influenza Vaccine (#1) 2025 Cholesterol Screening (Lipid Panel) 11/15/2029 11/15/2024 RSV Immunization Adult Patie nts (1 - 1-dose 75+ series) 2057 HIB [...] on patient's age to complete this topic MMR Vaccines Aged Out No longer eligi ble based on patient's age to complete this topic Meningococcal ACWY Vaccine Aged Out N o longer eligible based on patient's age to complete this topic Meningococcal B Vaccine Aged Out No l onger eligible based on patient's age to complete this topic RSV Immunization Patients Un chino 20 months Aged Out No longer eligible b ased on patient's age to complete this topic Varicella Vaccines Aged Out No longer eligible based on patient's age to complete this topic Procedures Procedure Name Priority Date/Time Associated Diagnosis Comments XR FINGERS 2+ VIEWS RIGHT STAT 02/19/2025 6:49 AM EDT from Last 3 Months Results * XR Fingers 2+ Views Right (02/19/2025 6:49 AM EDT) Anatomical Region Laterality Modality Upper Extremities, Fingers Right Radio graphic Imaging 02/19/2025 7:59 AM EDT Impressions 02/19/2025 8:00 AM EDT Impression: No retained opaque foreign body identified. [place]eler[place] PA ([id number]) -------- FINAL REPORT -------- Dictated By: Radha Richey Dictated Date: 02/19/2025 07:59 ET Assigned Physician: Radha Richey Reviewed and Electronically Signed By: Radha Richey Signed Date: 02/19/2025 08:00 ET Workstation ID: [id number] Transcribed By: Self Edit Transcribed Date: 02/19/2025 07:59 ET Narrative 02/19/2025 8:00 AM EDT History: Laceration third digit right hand with nail. Pain and swelling. Findings: An AP view of the right hand and oblique and lateral views of the third digit are submitted. Diffuse soft tissue swelling of the third digit is noted. No subcutaneous gas is seen and no retained opaque foreign body is identified. The underlying osseous structures are intact. Procedure Note Radha Richey MD - 02/19/2025 History: Laceration third digit right hand with nail. Pain and swelling. Findings: An AP view of the right hand and oblique and lateral views of the thirddigit are submitted. Diffuse soft tissue swelling of the third digit is noted. No subcutaneousgas is seen and no retained opaque foreign body is identified. Theunderlying osseous structures are intact. IMPRESSION: Impression: No retained opaque foreign body identified. Telerad PA ([id number]) -------- FINAL REPORT -------- Dictated By: Radha Richey Dictated Date: 02/19/2025 07:59 ET Assigned Physician: Radha Richey Reviewed and Electronically Signed By: Radha Richey Signed Date: 02/19/2025 08:00 ET Workstation ID: [id number] Transcribed By: Self Edit Transcribed Date: 02/19/2025 07:59 ET Sami Zaman MD IMG XR PROCEDURES Final Resu lt from Last 3 Months Care Teams Rubber Mill Operator Relationship Specialty Start Date End Date Liseth pSence MD [address] [place] [id number] PCP - General Internal Medicine 02/19/25
--- OUTSIDE RECORDS SUMMARY | 2025-05-04 08:39 | XMS_ITS | Encounter Summary ---
Author Organization [employer] Address [address] [place] [address] [address] [place] [address] Care Team Providers Care Straightening Roll Operator Name Role Phone Liseth Spence MD Primary Care Provider Encounter Details Date Type Department Care Team (Late st Contact Info) Description 07/12/2023 Telephone [facility] MEDICINE [address] [place] [address] Liseth Spence MD [address] [place] [address] Social History Tobacco Use Types Packs/Day Years [...] Description 05/28/2025 10:30 AM EDT Office Visit [facility] ADULT DENTAL [address] [place] [address] Billy Kirby DDS [address] [place] [address] 10/17/2025 10:15 AM EDT Office Visit [facility] ADULT DENTAL [address] [place] [address] Radha Mccloud documented as of this encounter Visit Diagnoses Not on filedocumented in this encounter Care Teams Straightening Roll Operator Relationship Specialty Start Date End Date Liseth Spence MD [address] [place] [address] PCP - General Internal Medicine 05/03/19 documented as of this encounter
--- OUTSIDE RECORDS SUMMARY | 2025-05-04 08:39 | XMS_ITS | Encounter Summary ---
Author Organization [facility] Address [address] [place] [address] [address] [place] [address] Care Team Providers Care Tool Mechanic Name Role Phone Liseth Spence MD Primary Care Provider [phone] Encounter Details Date Type Department Care Team (Latest Contact Info) Description 08/09/2019 Abstract [facility] CONVERSIONS Dental, Provider, DDS Social History [...] Description 05/28/2025 10:30 AM EDT Office Visit [facility] ADULT DENTAL [address] [place] [address] Billy Kirby DDS [address] [place] [address] 10/17/2025 10:15 AM EDT Office Visit [facility] ADULT DENTAL [address] [place] [address] Radha Mccloud documented as of this encounter Visit Diagnoses Not on filedocumented in this encounter Care Teams Tool Mechanic Relationship Specialty Start Date End Date Liseth Spence MD [address] [place] [address] PCP - General Internal Medicine 05/03/19 documented as of this encounter
--- OUTSIDE RECORDS SUMMARY | 2025-05-04 08:40 | XMS_ITS | Encounter Summary ---
Author Organization [facility] Address [address] [place] [address] [address] [place] [address] Care Team Providers Care Tableau Administrator Name Role Phone Liseth Spence MD Primary Care Provider Reason for Visit * Reason Onset Date Comments Call Back Request 01/09/2024 Encounter Details Date Type Department Care Team ([facility] st Contact Info) Description 01/09/2024 Telephone [facility] CHC MED & PEDS [address] [place] [address] Liseth Spence MD [address] [place] [address] Call Back Request Social History Tobacco Use [...] 7:40 PM EDT See TC from 01/09/24. AxioMx checked and pt presented to [facility] ED for two bite huang to forearm. Ptreceived Rabies tx(Rabies immunoglobulin.) RN will forward to PCP as FYI. * Telephone Encounter - Maegan Alan - 01/09/2024 11:09 AM EDT Tc from pt states woke up in the middle of the night to a bat in his room. Pt does have concerns and would like to get testing done but is currently asymptomatic. Please contact pt at [phone] documented in this encounter Plan of Treatment Upcoming Encounters Date Type Department Care Team (Late st Contact Info) Description 05/28/2025 10:30 AM EDT Office Visit [facility] ADULT DENTAL [address] [place] [address] Billy Kirby DDS [address] [place] [address] 10/17/2025 10:15 AM EDT Office Visit [facility] ADULT DENTAL [address] [place] [address] Radha Mccloud documented as of this encounter Visit Diagnoses Not on filedocumented in this encounter Care Teams Tableau Administrator Relationship Specialty Start Date End Date Liseth Spence MD [address] [place] [id number] PCP - General Internal Medicine 05/03/19 documented as of this encounter
--- NOTE | 2025-05-04 08:48 | ED_ITS ---
HPI - General Adult General Chief complaint: Animal Bite Stated complaint: needs booster shot ? animal bite Time Seen by Provider: 05/04/25 08:31 Source: patient Mode of arrival: ambulatory Limitations: no limitations History of Present Illness ED Provider: Saadia Turner APRN HPI narrative: This is a 45-year-old male with no known medical history who presents the ER with complaints of abrasion to the right hand. Patient reports he woke up 4 days ago and noticed a small abrasion to the hand. He denies any known injury or trauma. Patient does report that he it is rashes at times and is quite a itchy person. He can not recall any scratching of the area. Denies any pain at this site. Denies any drainage, redness or swelling. Of note, patient reports that in 2023 he had a bite from a bat and was seen in the emergency room. At that time he received immunoglobulin and had 4 doses of rabies vaccine subsequently. He came today because his primary was concern was that he may have a bat scratch or bite. He has not seen any bats in his apartment. He can not recall any bites or scratches. After further discussion he thinks a bat scratch/bite is less likely as he sleeps with this hand under the covers. Related Data Allergies Allergy/AdvReac Type Severity Reaction Status Date / Time Seasonal Allergies Allergy Runny Nose Verified 05/04/25 08:14 Review of Systems Review of Systems: Yes all other systems are reviewed and are negative Constitutional: Constitutional: Reports no additional constitutional complaints, Denies body ache(s), Denies chills, Denies fever(s), Denies headache(s) and Denies weakness Eyes: Eyes: Reports no additional eye complaints and Denies change in vision ENT: Reports system reviewed and no additional complaints, except as documented, Denies dizziness, Denies headache(s), Denies nasal congestion, Denies nasal discharge and Denies neck pain Cardiovascular: Cardiovascular: Reports no additional cardiovascular complaints, Denies chest pain, Denies leg edema and Denies dyspnea Respiratory: Respiratory: Reports no additional respiratory complaints, Denies cough and Denies dyspnea Gastrointestinal: Gastrointestinal: Reports no additional gastrointestinal complaints, Denies abdominal pain, Denies diarrhea, Denies nausea and Denies vomiting Genitourinary: Genitourinary: Denies urinary incontinence Musculoskeletal: Musculoskeletal: Reports no additional musculoskeletal complaints, Denies back pain, Denies arthralgias, Denies joint swelling, Denies neck pain, Denies numbness and Denies tingling Integumentary/Breasts: Skin/Breast: Reports system reviewed and no additional complaints, except as docu, Denies rash and Reports wounds Neurologic: Reports system reviewed and no additional complaints, except as documented, Denies Abnormal speech present, Denies dizziness, Denies headache(s), Denies numbness, Denies tingling and Denies weakness [facility] Past Medical History Attestation statement: The following information was validated with the patient. Source: old records reviewed and nursing notes reviewed Social History Social History Advance Directives: No Advance Directives Information Provided: No Physical Exam ED Vital Signs: Vital Signs - 24 hr 05/04/25 08:14 Temperature 98.0 F Pulse Rate 85 Respiratory Rate 16 Blood Pressure 146/70 H Pulse Oximetry 99 Oxygen Delivery Method Room Air BMI result Body Mass Index 23.1 Const General: cooperative, healthy appearing, comfortable and no acute distress Orientation/consciousness: patient oriented x3 Limitations: no limitations HENMT Head: Yes normal to inspection Ears: hearing grossly normal bilaterally General nose exam: Normal external nose present Face and sinus: Yes normal facial exam Mouth: Normal oral and palatal mucosa present Throat: Yes posterior oropharynx normal Eyes General: appearance normal, both eyes and all related structures Pupils: Equal, round and reactive pupils present Neck Neck: Yes normal visual inspection Chest Chest palpation & inspection: normal inspection of the chest Resp Effort & Inspection: normal respiratory effort Auscultation: clear to auscultation bilaterally Cardio Rate: regular rate Rhythm: regular rhythm Peripheral pulses: Peripheral pulses 2+ throughout GI Inspection: Yes normal to inspection Palpation (GI): Soft to palpation and nontender Auscultation: normal bowel sounds Back/Spine/Pelvis Thoracic/Lumbar Spine: thoracic and lumbar spine normal to inspection Skin General skin exam: no rashes or lesions noted Neuro General: patient oriented x3, no focal motor deficits and normal sensation to monofilament Cranial nerves: Yes Equal, round and reactive pupils present Cognition (Neuro): normal cognition Speech: No Abnormal speech present Gait exam (Neuro): Normal gait present Motor exam (neuro): 5/5 motor strength present throughout Extrem Other: To the dorsal hand there is a small abrasion noted Medical Decision Making Medical Decision Making MDM Narrative: This is a 45-year-old male with no known medical history who presents the ER with complaints of abrasion to the right hand. Patient reports he woke up 4 days ago and noticed a small abrasion to the hand. He denies any known injury or trauma. Patient does report that he it is rashes at times and is quite a itchy person. He can not recall any scratching of the area. Denies any pain at this site. Denies any drainage, redness or swelling. Of note, patient reports that in 2023 he had a bite from a bat and was seen in the emergency room. At that time he received immunoglobulin and had 4 doses of rabies vaccine subsequently. He came today because his primary was concern was that he may have a bat scratch or bite. He has not seen any bats in his apartment. He can not recall any bites or scratches. After further discussion he thinks a bat scratch/bite is less likely as he sleeps with this hand under the covers. To the dorsal hand there is a small abrasion noted It sounds like an exposure to a bat is less likely and so at this time after further discussion and shared decision making with the patient we will not give rabies vaccine. Differential Diagnosis Differential Diagnoses: The differential diagnosis associated with the presentation includes Admission/Observation Consideration of admission/observation: Escalation of care including admission/observation considered External Record Review External record reviewed: Outside ED record Prescription Management rabies vaccine Discharge Plan Discharge Clinical Impression: Abrasion hand Patient Disposition: Home, Self-Care Instructions: Abrasion (ED) Additional Instructions: After further discussion we do not recommend rabies vaccination Referrals: Liseth Spence MD [Primary Care Provider, Medical] Interventions: ED Discharge Assessment Last Done: 05/04/25 08:53 Print Language: Estonian
[2025-05-04 08:53] VITALS: BP 146/70; PULSE 85; RESP 16; TEMP 36.7; O2SAT 99
== END 2025-05-04 09:03 | disposition home or self-care (01) ==
PROVIDERS: Emergency Provider Emergency Medicine Emergency Medical Services; PCP Internal Medicine
DX: S60.511A Abrasion of right hand, initial encounter (principal); X58.XXXA Exposure to other specified factors, initial encounter; Y93.89 Activity, other specified; Y92.092 Bedroom in other non-institutional residence as the place of occurrence of the external cause; Y99.8 Other external cause status
CPT/HCPCS: 99282